=== PATIENT | female | born 2005 | race Caucasian/White ===

== ENCOUNTER 2024-12-19 15:10 | Emergency (ER) | payer OTHER ==
[2024-12-19 15:19] VITALS: BP 107/71; PULSE 78; RESP 20; TEMP 98.4; BMI 17.9
[2024-12-19 17:42] LABS: ABSOLUTE IMMATURE GRANULOCYTES 0.02 x10^3/uL (0.0-0.031); BASOPHILS # 0.07 x10^3/uL (0.01-0.08); EOSINOPHIL % 7.2 % (0.7-5.8); EOSINOPHILS # 0.58 x10^3/uL (0.04-0.36); HEMATOCRIT 35.8 % (34.1-44.9); HEMOGLOBIN 11.1 g/dL (11.2-15.7); MEAN CELL VOLUME 79.2 fl (79.4-94.8); MEAN PLT VOLUME 10.5 fl (9.4-12.3); PLATELET COUNT 284 x10^3/uL (182-369); RDW 14.6 % (12.1-16.5)
[2024-12-19 18:07] LABS: CHLORIDE 103 mmol/L (98-107); POTASSIUM 3.7 mmol/L (3.5-5.1); SODIUM 138 mmol/L (136-145)
[2024-12-19 18:09] LABS: BLOOD UREA NITROGEN 4.1 mg/dL (7-18); CALCIUM 9.7 mg/dL (8.5-10.1)
[2024-12-19 18:10] LABS: ANION GAP 7 mmol/L (4-13); CO2 27 mmol/L (21-32); GLUCOSE,RANDOM 90 mg/dL (74-106)
[2024-12-19 18:13] LABS: CREATININE 0.5 mg/dL (0.55-1.3); SGOT/AST 17 U/L (15-37); SGPT/ALT 21 U/L (13-61)
[2024-12-19 18:14] LABS: BILIRUBIN,TOTAL 0.4 mg/dL (0.2-1); TOT PROT 7.4 g/dl (6.4-8.2)
[2024-12-19 18:15] LABS: ALK PHOS 57 U/L (45-117)
[2024-12-19 19:05] LABS: HCV DIAGNOSTIC IN-HOUSE W/RFLX NON-REACTIVE (NONREACTIVE)
[2024-12-19 19:06] LABS: HIV INTERPRETATION NEGATIVE (NEGATIVE)
== END 2024-12-19 18:48 | disposition home or self-care (01) ==
LOC: JER 15:10
DX: R19.7 Diarrhea, unspecified (principal)
CPT/HCPCS: 36415; 80053; 84703; 85025; 86140; 86803; 87389; 87491; 87591; 99283-25

== ENCOUNTER 2025-01-21 07:03 | Day surgery (SDC) | payer OTHER ==
[2025-01-18 15:50] VITALS: BMI 18.1
[2025-01-21] MEDS ORDERED: PROPOFOL 20 ML ONE ×3 (07:43→07:44)
[2025-01-21] MEDS ORDERED: LIDOCAINE HCL/PF 2% SDV 5ML VIAL ONE (07:43)
[2025-01-21] MEDS ORDERED: PROPOFOL 40 ML ONE (07:55)
[2025-01-21 09:13] VITALS: RESP 20; TEMP 97.2
[2025-01-21 09:36] VITALS: BP 98/56; PULSE 66
== END 2025-01-21 09:30 | disposition home or self-care (01) ==
LOC: FASU-ENDO 07:03
PROVIDERS: ATTEND Internal Medicine Gastroenterology
PROC: 0DB98ZX Excision of Duodenum, Via Natural or Artificial Opening Endoscopic, Diagnostic (ICD-10-PCS; 2025-01-21)
PROC: 0DB68ZX Excision of Stomach, Via Natural or Artificial Opening Endoscopic, Diagnostic (ICD-10-PCS; 2025-01-21)
PROC: 0DJD8ZZ Inspection of Lower Intestinal Tract, Via Natural or Artificial Opening Endoscopic (ICD-10-PCS; principal; 2025-01-21 08:16)
DX: K62.5 Hemorrhage of anus and rectum (principal); R10.33 Periumbilical pain; D50.9 Iron deficiency anemia, unspecified
CPT/HCPCS: 81025; 88305-TC; 88342-TC